=== PATIENT | female | born 1945 | race Caucasian/White ===

== ENCOUNTER 2017-02-05 15:15 | Outpatient (CLI) | payer MEDICARE, OTHER ==
--- NOTE | 2017-02-05 21:03 | CONSULTATION NOTE ---
Palliative Care Consultation - Referral Referring Provider: Rodney WATSON Time of Visit: 8890-0431 Referral setting: Home (The patient is seen in her home seetting secondary to it is a taxing and considerable effort for her to leave the home related to pain /freq stooling/ and to facilitate a family meeting) Referral Reason: Pain of neoplastic origin - Information Sources Records Reviewed: Old records reviewed History obtained from: Patient, Family ( Jas participated in the visit) Exam limitations: No limitations - History of Present Illness Brief History of Present Illness: This is a-year-old woman who has a stage IV ovarian cancer, and seen here today to define goals of care. She was originally diagnosed in January of 2015, at that point in time she underwent chemotherapy for which she had significant difficulties as far as reactions needing transfusions and overall felt fairly distressed over this on full experience. An it she did have some shrinkage in her tumor and was offered surgery at the end of her cycle in May of 2015, at that point in time decided she was going to pursue integrated therapies. She has had support through acupuncture, [place] herbs, [facility], most recently she took a break for a few months and rest in [place], and now has been doing marijuana as well as some other integrated approaches. Today I find her quite distressed fatigued, and with increasing pain. She did have a followup in [place] with a CT scan I have access to. It does show one pulmonary nodule, concern for lesion in hepatic segment as well as other lesions. She has multiple and large bilateral retroperitoneal lymph nodes measuring up to 2.2 x 1.6 cm as well as in her pelvis a large mixed solid/cystic mass consistent with her history of ovarian cancer. She does have masses around the rectum portion of the sigmoid colon as was the inferior aspect of the transverse colon and multiple loops of small bowel. The left adnexal mass measures approximately 6.9x6.4 cm as well as a right adnexal mass approximately 9.5 x 7.3 cm. Of concern there is extension of the tumor displacing the inferior left rectus muscle. She's had no further intervention as far as chemotherapy or radiation. The assumption is she's had progression of disease, with progression of symptoms. Her most distressing symptom is frequent stooling about 10-12 episodes a day, if she has less she has increased pain. I suspect she is getting close to obstructing totally. She describes the stool has formed a flattened and frequent small amounts. In her distress, it includes that she spends about a third of the time in the bathroom. Her at a presenting symptom is she does have ongoing vaginal drainage, this has become darkened with suspected increased bleeding. In examination of the drainage it is actually a fairly light serosanguineous with small chunks of tissue it does appear actually in description and an appearance suspicious for a fistula. On examination of her abdomen she has a large mass on her left side that is just about the size of a grapefruit on exam and firm to touch and there is some extension on into the right side with some tenderness. It is quite fixed. She does not appear to have a taut belly, or ascitic in nature thus suspicion of the fistula is draining her recurrent fluid accumulation. Patient is struggling him as far as weighing benefits and burdens of proceeding with any further workup looking at what is currently going on, and if she would do anything different with that information. She wanted to discuss the continuum for end of life care. 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 denies: Hemorrhoids JUTE BAG SEWER: reports: Ovarian cysts, Ovarian cancer (dx 2 years ago; received conventional treatment did very poorly; went on to do integrative therapies) : reports: Incontinence, Other (vaginal drainage; serosangious-has been increasing in dark/red/brown color in nature and amount) Psych: reports: Anxiety Musculoskeletal: reports: None Derm: reports: Other (right nose lesion; recurrent had been removed) MRSA Hx?: No - Past Surgical History General: reports: Colonoscopy (2015) /JUTE BAG SEWER: reports: section - Substance History Use: Uses substance without health or social issues: Cannabis (patient using cannabis for sleep, appetite and pain relief with some success) Social History - Living Situation Living arrangement: At home Support System: Reports many supportive friends and family; wants to be support of her journey Family History - Family History Family History: Mother: , CAD, Father: , Cancer (prostate; grandmother colon cancer), Other family: Alive and Well (daughter with crohns) Family History Comment/Other: has chosen not to do genetic testing Medications/Allergies - Medications Home Medications: Ambulatory Orders Medication Instructions Recorded Confirmed Morphine Sulfate [Morphine Sulf 5 - 10 mg PO Q3HR PRN 02/05/17 02/05/17 Oral (Roxanol)] Ondansetron Odt [Zofran Odt] 4 mg PO TID PRN 02/05/17 02/05/17 - Allergies Allergies/Adverse Reactions: Allergies Allergy/AdvReac Type Severity Reaction Status Date / Time Penicillins Allergy Unknown Verified 02/05/17 21:13 Review of Systems - Constitutional Constitutional: reports: Fatigue, Weakness, Weight loss (about 20 pounds total sinc dx; 124.2 today) - Eyes Eyes: reports: Corrective lenses. denies: Pain - Ears, Nose & Throat Ears, Nose & Throat: denies: Hearing loss - Cardiovascular Cariovascular: reports: Lightheadedness, Exertional dyspnea, Decr. exercise tolerance. denies: Chest pain - Respiratory Respiratory: reports: SOB with exertion. denies: SOB at rest - Gastrointestinal Gastrointestinal: reports: Abdominal pain, Abdominal distention, Change in bowel habits, Reflux/heartburn (intermittent) - Genitourinary Genitourinary: reports: Frequency, Incontinence, Other (lymphadema of lower abdomen; labia/vaginal area) - Musculoskeletal Musculoskeletal: reports: Muscle weakness - Integumentary Integumentary: reports: Dryness - Neurological Neurological: reports: General weakness - Psychiatric Psychiatric: reports: Depression, Anxiety - Endocrine Endocrine: denies: Intolerance to cold, Intolerance to heat - Hematologic/Lymphatic Hematologic/Lymphatic: reports: Anemia (has dx of thalassemia minor). denies: Recurrent infections - All Other Systems All Other Systems: reports: Reviewed and negative Physical Examination - Vital Signs Temperature: 97.9 C Pulse Rate: 72 Respiratory Rate: 18 O2 Saturation: 95 Blood Pressure: 122/82 - Physical Exam General Appearance: positive: Mild distress Eyes Bilateral: positive: No scleral icterus ENT: negative: Oral lesions Neck: positive: Trachea midline Respiratory: positive: Breath sounds nml Cardiovascular: positive: Regular rate & rhythm Abdomen: positive: Tenderness, Guarding, Mass (firm palpaple mass LLQ about grapefruit in size; another swelling below the umbilicus more fixed in nature; RLQ softer; does not appear ascitic/not taut; but lymphadema noted in groin folds/periarea), Abnml bowel sounds (fairly hyperactive; with some higher pitched), Other (serosangious drainage on pad; suspect more fistula like in appearance than vaginal bleeding;"tissue fragments" not clots observed; volume soaking about 1 pad every couple of hours; increase over the last weeks; labia left swollen and engorged) Skin: positive: Pallor, Dryness, Other (labia engorge and swollen; as well as vaginal folds; no signs of candidiasis or infection at this time) Extremities: positive: Nml appearance Neurologic/Psychiatric: positive: Oriented x3, Weakness, Depressed mood/affect Palliative Care - POLST Patient has POLST: Yes POLST Status: DNR, Comfort Measures (no antibiotics; no medically assisted nutrition; Completed at visit) Pain: Pain worsening, Location (reports "travels" around abdomen; mostly lower abdominal and widespread; have been using cannabis with moderate control; has been escalating last few days), Severity (8/10 worse; 3/10 best with cannabis) Drowsiness: Mild (1-3) (sleeping more) Nausea: Mild (1-3) (occasional) Anxiety: Mild (1-3) (with increasing decline) Dyspnea: Mild (1-3) (exertion only) Anorexia: None (has been eating though less) Insomnia: Sleeps poorly (up 6-8 times with stooling) Constipation: Comment (moving bowels frequently; increased discomfort if not spend 1/3 of day in bathroom; distressed with current QOL) Feelings of wellbeing/Perceived Quality of Life: Worsening Performance Status: Patient with diminished energy, ambulatory and can still bath self, but spends a great deal of time in recliner. Palliative Care Performance Status [50%]. - Palliative Care Discussion: Surrogate decision maker-Jas Cheng, . Family conference included the discussions regarding that continuum of care particularly on end-of-life. Patient is expressing distress with her current quality of life. Given her current symptom burden, symptoms of impending bowel obstruction, as an increased tumor burden I suspect patient has days to weeks. Reviewed goals of care in the context of if wanted to pursue further intervention, PCP has suggested followup with an oncologist, and currently she is feeling quite strongly she would not accept any further treatment. Given her current goals, did discuss as far as follow-through regarding is the burden may out weigh the benefits in this case. Looking at the other continuum of care as far as hospice , counseling regarding need to have goals clarified for comfort only. Education provided on the hospice benefit what is included and not included as well as a focus on comfort and end-of-life. In the completion of the POLST patient's expressed she is definitely not interested in further intervention and wanted to erendira comfort measures only. Given her identified goals that suggests considering moving towards hospice as far as the depth of support particularly since she is expressing wishes to have a at home. Patient curious, about with dignity, reviewed him concerns in the context of her most likely impending obstruction and the steps to go through to obtain the medications as well as needing to self administer. At this point in time, she did not want to further pursue this. In conclusion number meeting they discussed they will undertake information, weight benefits and burdens, and let me know tomorrow. Impression and Recommendations - Palliative Care Impression: This is a valerio 71-year-old woman with known overbearing cancer, omental mass, and peritoneal carcinomatosis. She presents today with impending bowel obstruction, increased uncontrolled pain, and high symptom burden. She is struggling as far as the findings goals of care, moving towards end-of-life, and needing education as far as the continuum of care. Recommendations/Counseling Done: 1. Pain of neoplastic origin. Patient has fairly severe abdominal pain, this is attributed to her increasing tumor burden. She has been using cannabis, with varying degrees of success. Today I find her though with increasing uncontrolled pain over the last 2-3 days. She does willing to try some opiates. She has prescription of morphine 20 mg per ml provided by her PCP as a result of a conversation I had earlier, so could have available to try during visit. Patient remains somewhat hesitant to start, tired a fairly "homeopathic" dose of 2.5 mg with no relief. Did repeat this within 30 minutes. Did discuss with patient's fairly high level of pain may need to titrate up to 0.5 mls or 10 mg, may use every 2 hours as needed. The goal is to establish total opioid dose needed to address her current pain levels. Goal would be to transition to sentinel given 24-48 hours of recording. This would allow easier and more sustained pain relief. As well as if she obstructs the way to address her pain. Counseling on side effects including nausea, use of ondansetron, sedation, and constipation. 2. Constipation opioid induced. Education and counseling given regarding need to keep the bowels soft and regular. Instructed to obtain MiraLAX 17 g to start with one capful daily. Instructed to obtain senna concentrate 8.6 mg tabs and initiate at 1-2 tabs to balance the effect of the opioid. Patient's fear of constipation or increased difficulty is well as valid. Restriction on the motion with MiraLAX and the push with the senna. 3. Advanced care planning. Completed a POLST after defining goals of care, discussed need to post on fridge, and if need to call for assistance to present to paramedics. Counseling on end of life options, weighing benefits and burdens of pursing further intervention or evaluation, and DWD. Reviewed the hospice benefit, services provided as well as limitations. Agreed they would as a couple discuss the information presented today and let me know tomorrow. ADDENDUM: 02/06. Spoke with patient, has not used much of the morphine, but continuing the combination of cannabis with some relief. Discussed wanting to transition her to fentanyl 12 mcg, since choosing hospice can do this in the next couple of days, recommendation as far as pending concerns for obstruction. Hospice able to admit today, patient in agreement. She would like to have a at home, friends had suggested transition to [facility] which she would like to be home instead, reviewed team would be able to assist establishing a plan and support for this. Message left for Rodney WATSON, on final decision. Thank you Rodney WATSON for allowing me to be part of the conversation regarding establishing goals of care, given patient symptom burden, goals, and wishes it does appear this would be best supported by the hospice team. Time Spent: 90 minutes with greater than 50% done in counseling for pain/symptom management , advanced care planning and goals of care.
== END 2017-02-05 15:16 | disposition home or self-care (01) ==
LOC: PC 15:15
PROVIDERS: ATTEND Nurse Practitioner Adult Health
DX: Z51.5 Encounter for palliative care (principal); G89.3 Neoplasm related pain (acute) (chronic); C56.9 Malignant neoplasm of unspecified ovary; C78.6 Secondary malignant neoplasm of retroperitoneum and peritoneum; K59.03 Drug induced constipation; T40.2X5D Adverse effect of other opioids, subsequent encounter; R91.1 Solitary pulmonary nodule; R59.0 Localized enlarged lymph nodes; K63.89 Other specified diseases of intestine; K52.9 Noninfective gastroenteritis and colitis, unspecified; D56.3 Thalassemia minor; R32 Unspecified urinary incontinence; F41.9 Anxiety disorder, unspecified; Z79.891 Long term (current) use of opiate analgesic; R63.4 Abnormal weight loss; R06.09 Other forms of dyspnea; R42 Dizziness and giddiness; M62.81 Muscle weakness (generalized); F32.9 Major depressive disorder, single episode, unspecified; D64.9 Anemia, unspecified; Z66 Do not resuscitate
CPT/HCPCS: 99345

== ENCOUNTER 2017-03-07 12:18 | Outpatient (CLI) | payer MEDICARE, OTHER ==
[2017-03-07 11:48] LABS: BILIRUBIN,URINE NEGATIVE (NEGATIVE); PH,URINE 7.5 PH (5.0-7.5)
[2017-03-07 13:01] LABS: WBC,URINE >25 /HPF (0-5)
[2017-03-07 13:02] LABS: UR CULTURE IF IND INDICATED
== END 2017-03-07 12:19 | disposition home or self-care (01) ==
LOC: LAB.R 12:18
PROVIDERS: ATTEND Family Medicine
DX: R30.9 Painful micturition, unspecified (principal)
CPT/HCPCS: 81001; 87086